=== PATIENT | male | born 1995 | race Two or more races ===

== ENCOUNTER 2019-07-28 12:49 | Emergency (ER) | payer OTHER ==
[~2019-07-28] VITALS: Ht 185.4 cm; Wt 104.3 kg
[2019-07-28] MEDS ORDERED: Acetaminophen 500mg (ES) tab ORAL ONE (14:00)
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
[2019-07-28] MEDS ORDERED: IBUPROFEN600 MG ORAL (14:30)
[2019-07-28] MEDS ORDERED: ROBAXIN-750750 MG PO (14:30)
[2019-07-28 14:37] VITALS: BP 127/71
--- NOTE | 2019-07-28 14:37 | NUR ---
ER DISCHARGE NOTE: Patient is cleared to be discharged per ERMD, pt is aox4, on room air, with stable vital signs. pt was given dc and prescription instructions, pt was able to verbalize understanding, pt id band removed without complications. pt is able to ambulate with steady gait. pt took all belongings.
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
== END 2019-07-28 14:37 | disposition home or self-care (01) ==
LOC: EMR 13:32
DX: S16.1XXA Strain of muscle, fascia and tendon at neck level, initial encounter (principal); S40.022A Contusion of left upper arm, initial encounter; S63.501A Unspecified sprain of right wrist, initial encounter; V23.4XXA Motorcycle driver injured in collision with car, pick-up truck or van in traffic accident, initial encounter; Y92.410 Unspecified street and highway as the place of occurrence of the external cause
CPT/HCPCS: 99283